=== PATIENT | male | born 1990 | race Caucasian/White ===

== ENCOUNTER 2024-04-20 20:25 | Emergency (ER) | payer OTHER ==
[2024-04-20 20:36] VITALS: RESP 18; BMI 47.9
[2024-04-20 21:49] VITALS: BP 130/79; PULSE 63; TEMP 98.4
[2024-04-20] MEDS ORDERED: LIDOCAINE PATCH REMOVAL MC SCH (22:00)
[2024-04-20] MEDS ORDERED: LIDOCAINE 5% TOPICAL PATCH ONE (22:10)
[2024-04-20] MEDS ORDERED: IBUPROFEN 600 MG TABLET (FP) PO ONE (22:10)
[2024-04-20] MEDS: LIDOCAINE 5% TOPICAL PATCH TP ONE (22:11)
[2024-04-20] MEDS: IBUPROFEN 600 MG TABLET (FP) PO ONE (22:11)
== END 2024-04-20 22:19 | disposition home or self-care (01) ==
LOC: FER 20:25
DX: M54.6 Pain in thoracic spine (principal); V49.40XA Driver injured in collision with unspecified motor vehicles in traffic accident, initial encounter; Y92.410 Unspecified street and highway as the place of occurrence of the external cause
CPT/HCPCS: 99283-25